=== PATIENT | male | born 1970 | race Caucasian/White ===

== ENCOUNTER 2020-11-30 14:34 | Emergency (ER) | payer OTHER ==
[~2020-11-30] VITALS: Ht 185.4 cm; Wt 104.3 kg
[~2020-11-30 14:34] MED LIST: ZESTRIL10 MG; ZOCOR
[2020-11-30] MEDS ORDERED: ADULT LOW DOSE81 M1 (14:54)
== END 2020-11-30 18:01 | disposition home or self-care (01) ==
LOC: ER 14:34
DX: B34.9 Viral infection, unspecified (principal); R13.19 Other dysphagia; Z03.818 Encounter for observation for suspected exposure to other biological agents ruled out